=== PATIENT | male | born 1975 | race Caucasian/White ===

== ENCOUNTER 2023-12-06 14:58 | Outpatient (OUT) | payer BC, SELFPAY | END 2023-12-06 14:59 | disposition home or self-care (01) | LOC: SLEEP 14:58 | PROVIDERS: PCP Family Medicine; Visit Provider Family Medicine | DX: G47.33 Obstructive sleep apnea (adult) (pediatric) (principal) | CPT/HCPCS: 95806 ==

== ENCOUNTER 2025-07-02 14:52 | Outpatient (OUT) | payer BC, SELFPAY ==
--- OUTSIDE RECORDS SUMMARY | 2025-06-26 15:40 | XMS_ITS | Encounter Summary ---
Author Organization [facility] Address [address] [place] [address] Care Team Providers Care Densitometer Reader Name Role Phone Jae Faulkner MD Primary Care Provider Micaela Merino ENVIRONMENTAL SYSTEMS COORDINATOR Unavailable [phone] Encounter Details DateTypeDepartmentCare Team (Latest Contact Info)Wqvtxxjqlhf55/23/2025 3:40 PM EDTOffice Visit [facility] [address] [place] [address] Micaela Merino, ENVIRONMENTAL SYSTEMS COORDINATOR [address] [place] [address] Contusion of left foot, initial encounter (Primary Dx); Pain in toe of left foot Social History Tobacco UseTypesPacks/DayYears UsedDateSmoking Tobacco: Never AssessedSex and Gender InformationValueDate RecordedSex Assigned at BirthNot on fileLegal Sex Male11/16/2022 6:52 PM EDTGender IdentityNot on fileSexual OrientationNot on filedocumented as of this encounter Last Filed Vital Signs Vital SignReadingTime TakenCommentsBlood Yvurhhuh212/7006/26/2025 3:44 PM EDT Mbgai277006/26/2025 3:44 PM FOXYbutmhomkaq93.6 ??C (97.8 ??F)06/26/2025 3:44 PM EDTRespiratory Rate--Oxygen Fkhcczwjjf34%06/26/2025 3:44 PM EDTInhaled Oxygen Concentration--Feygzq42 kg (205 lb)06/26/2025 3:44 PM EDTHeight--Body Mass Index 23.6902/06/2021 12:00 PM ESTdocumented in this encounter Progress Notes * Micaela Merino, ENVIRONMENTAL SYSTEMS COORDINATOR - 06/26/2025 3:40 PM EDT Images from the original note were not included. [address], [address] [facility], [address] P: [phone] F: [phone] HPI Historian of HPI: patient Josiah Tang is a 50 y.o. male who presents today to the Urgent Care with the following complaints and denials due left second toe pain which has been present since last night. Pt states he did kick a bed post last night. C/O Denies Symptom Comments [x] [] swelling [x] [] ecchymosis [x] [] erythema [x] [] tingling [x] [] numbness [x] [] Pain radiation [x] [] Weakness [x] [] Decreased ROM [x] [] Trauma Additional Comments: pt has not taken any OTC medications Pt denies heat application to the affected area Pt denies cold application to the affected area Pt states he does have a hx of gout. Denies fever or chills. ROS A complete system ROS was performed and negative aside from the pertinent positives noted in the HPI and PE. PHYSICAL EXAM Examination: General Examination: General Examination: Alert, oriented, normal affect, well-appearing, in no acute distress, well developed, well nourished. Head: Normocephalic, atraumatic Eyes: Sclera anicteric. Neck/Thyroid: Neck supple, full range of motion Skin: mild erythema left dorsal foot, MTP joint of toes 2-4. Musculoskeletal: Foot left: painful ROM Toes. FROM Ankle w/o tenderness. Swelling and tenderness localized to MTP joint of toes 2-3. Extremities: no clubbing, cyanosis Peripheral Pulses: 2+ posterior tibial, 2+ dorsalis pedis, nail laura intact left Neurologic: Sensory exam intact to left foot. Psych: alert, oriented, cognitive function intact, cooperative with exam TREATMENT PLAN 1. Contusion of left foot, initial encounter (Primary) Xray left foot obtained; prelim interp neg for acute findings. Will contact pt if any change with final report. Start prednisone-see rx, discussed Se, no NSAIDS with use. Pt requests rx for motrin. Discussed will rx motrin, however, pt to not start until after finishing prednisone. Discussed not taking motrin and prednisone together. Immediate eval if new, worsening, or warning s/s otherwise follow up with PCP over next 5-7 days for recheck. - predniSONE (Deltasone) 20 MG tablet; Take 1 tablet (20 mg) by mouth in the morning and 1 tablet (20 mg) before bedtime. Do all this for 5 days. Dispense: 10 tablet; Refill: 0 - ibuprofen 800 MG tablet; Take 1 tablet (800 mg) by mouth every 8 (eight) hours if needed for mildpain for up to 7 days Do not take with prednisone. Start as needed after prednisone use. Dispense: 21 tablet; Refill: 0 2. Pain in toe of left foot See 1. - XR foot 3+ views left - predniSONE (Deltasone) 20 MG tablet; Take 1 tablet (20 mg) by mouth in the morning and 1 tablet (20 mg) before bedtime. Do all this for 5 days. Dispense: 10 tablet; Refill: 0 - ibuprofen 800 MG tablet; Take 1 tablet (800 mg) by mouth every 8 (eight) hours if needed for mildpain for up to 7 days Do not take with prednisone. Start as needed after prednisone use. Dispense: 21 tablet; Refill: 0 documented in this encounter Plan of Treatment Not on file documented as of this encounter Procedures Procedure NamePriorityDate/TimeAssociated DiagnosisCommentsXR FOOT 3+ VIEWS LEFT STAT1 4:40 PM EDT Pain in toe of left foot documented in this encounter Results * XR foot 3+ views left (06/26/2025 4:40 PM EDT)Anatomical RegionLaterality ModalityLower Extremities, FootLeftRadiographic ImagingSpecimen (Source) Anatomical Location / LateralityCollection Method / VolumeCollection Time Received Time06/26/2025 4:55 PM EDT Impressions 06/26/2025 5:03 PM EDT FINDINGS FAVOR GOUT. ELECTRONICALLY SIGNED BY: Zenobia Trent DO Narrative 06/26/2025 5:03 PM EDT XR FOOT 3+ VIEWS LEFT : 06/26/2025 4:34 PM CLINICAL HISTORY: pain injury swelling. hx gout. COMPARISON: October 14, 2020 TECHNIQUE: ROUTINE FINDINGS: There is soft tissue prominence over the first digit in the region of the MTP joint. There is ??erosion seen in the head of the first metatarsal with overhanging edges. Small erosion is also seen in the head of the proximal phalanx and the base of the distal phalanx. The joint spaces are relatively preserved. Procedure Note Zenobia Trent DO - 06/26/2025 XR FOOT 3+ VIEWS LEFT : 06/26/2025 4:34 PM CLINICAL HISTORY: pain injury swelling. hx gout. COMPARISON: October 14, 2020 TECHNIQUE: ROUTINE FINDINGS: There is soft tissue prominence over the first digit in the region of theMTP joint. There is erosion seen in the head of the first metatarsal withoverhanging edges. Small erosion is also seen in the head of the proximalphalanx and the base of the distal phalanx. The joint spaces arerelatively preserved. IMPRESSION: FINDINGS FAVOR GOUT. ELECTRONICALLY SIGNED BY: Zenobia Trent DO Authorizing ProviderResult TypeResult StatusLindschito Merion NPIMG XR PROCEDURESFinal Result documented in this encounter Visit Diagnoses Diagnosis Contusion of left foot, initial encounter- Primary Pain in toe of left foot Pain in soft tissues of limb documented in this encounter Care Teams Team MemberRelationshipSpecialtyStart DateEnd Date Jae Faulkner MD [address] [place] [address] PCP - GeneralFamily Medicine12/27/23 Micaela Merino NP [address] [place] [address] GLENNA - Leslie Commercial02/02/25documented as of this encounter
--- OUTSIDE RECORDS SUMMARY | 2025-06-26 17:00 | XMS_ITS | Encounter Summary ---
Author Organization [facility] Address [facility] [place] [address] Care Team Providers Care Horticultural Specialty Grower Field Name Role Phone Jae Faulkner MD Primary Care Provider Micaela Merino STAR ROUTE MAIL DRIVER Unavailable [phone] Encounter Details DateTypeDepartmentCare Team (Latest Contact Info)Ihlillzqnxw98/23/2025 5:00 PM EDTAncillary Procedure [facility] [address] [facility] [address] [place] [phone] Social History Tobacco UseTypesPacks/DayYears UsedDateSmoking Tobacco: Never AssessedSex and Gender InformationValueDate RecordedSex Assigned at BirthNot on fileLegal Sex Male11/16/2022 6:52 PM EDTGender IdentityNot on fileSexual OrientationNot on filedocumented as of this encounter Plan of Treatment Not on [...] Zenobia Trent DO Authorizing ProviderResult TypeResult StatusLindschito Merino NPIMG XR PROCEDURESFinal Result documented in this encounter Visit Diagnoses Not on filedocumented in this encounter Care Teams Team MemberRelationshipSpecialtyStart DateEnd Date Jae Faulkner MD [address] [place] [address] PCP - GeneralFamily Medicine12/27/23 Micaela Merino NP [address] [place] [address] PCP - Lyle Commercial02/02/25documented as of this encounter
--- OUTSIDE RECORDS SUMMARY | 2025-07-02 14:56 | XMS_ITS | Encounter Summary ---
Author Organization [facility] Address [address] [facility] [place] [address] Care Team Providers Care Systems Testing Laboratory Technician Name Role Phone Jae Faulkner MD Primary Care Provider [phone] Micaela Merino NIPPING MACHINE OPERATOR Unavailable [phone] Encounter Details DateTypeDepartmentCare Team (Latest Contact Info)Qhtanlsljec75/23/2025Travel Social History Tobacco UseTypesPacks/DayYears UsedDateSmoking Tobacco: Never AssessedSex and Gender InformationValueDate RecordedSex Assigned at BirthNot on fileLegal Sex Male11/16/2022 6:52 PM EDTGender IdentityNot on fileSexual OrientationNot on filedocumented as of this encounter Plan of Treatment Not on file documented as of this encounter Visit Diagnoses Not on filedocumented in this encounter Care Teams Team MemberRelationshipSpecialtyStart DateEnd Date Jae Faulkner MD [address] [place] [address] PCP - GeneralFamily Medicine12/27/23 Micaela Merino, DAVID [address] [facility] [address] [place] [address] PCP - [place] Commercial02/02/25documented as of this encounter
--- OUTSIDE RECORDS SUMMARY | 2025-07-02 14:56 | XMS_ITS | Encounter Summary ---
Author Organization [facility] Address [address] [facility] [place] [address] Care Team Providers Care Castables Worker Name Role Phone Jae Faulkner MD Primary Care Provider Micaela Merino NP Unavailable Encounter Details DateTypeDepartmentCare Team (Latest Contact Info)Lalvgisstbd05/23/2025Telephone [facility] [place] [facility] [address] [facility] [address] [place] [address] Micaela Merino NP [address] [facility] [address] [place] [address] Social History Tobacco UseTypesPacks/DayYears UsedDateSmoking Tobacco: Never AssessedSex and Gender InformationValueDate RecordedSex Assigned at BirthNot on fileLegal Sex Male11/16/2022 6:52 PM EDTGender IdentityNot on fileSexual OrientationNot on filedocumented as of this encounter Miscellaneous Notes * Telephone Encounter - Micaela Merino NP - 06/26/2025 5:22 PM EDT Please let pt know final foot xray remains neg for fracture. Does mention great toe having changes that favor gout. Nothing mentioned about 2nd and 3rd toes having gout noted on xray. Start steroid as directed and follow up as directed at time of office visit. documented in this encounter Plan of Treatment Not on file documented as of this encounter Visit Diagnoses Not on filedocumented in this encounter Care Teams Team MemberRelationshipSpecialtyStart DateEnd Date Jae Faulkner MD [address] [place] [address] PCP - GeneralFamily Medicine12/27/23 Micaela Merino NP [address] [place] [address] PCP - Leslie Carroll02/02/25documented as of this encounter
--- OUTSIDE RECORDS SUMMARY | 2025-07-02 14:56 | XMS_ITS | Clinical Summary ---
Author Organization [facility] Address [facility] [place] [address] Care Team Providers Care Doctor Of Radiology Name Role Phone Jae Faulkner MD Primary Care Provider [phone] Micaela Merino PERSONAL INJURY ATTORNEY Unavailable Allergies No known active allergies Medications MedicationSigDispense QuantityRefillsLast FilledStart DateEnd DateStatus ibuprofen 800 MG tablet Indications:Contusion of left foot, initial encounter,Pain in toe of left foot Take 1 tablet (800 mg) by mouth every 8 (eight) hours if needed for mild pain for up to 7 days Do not take with prednisone. Start as needed after prednisone use. 21 tablet /tive methylPREDNISolone (Medrol Dospak) 4 MG tablets Indications:Pain and swelling of toe of left foot,Pain and swelling of toe of right footFollow schedule on package instructions 21 tablet Discontinued(Therapy completed) predniSONE (Deltasone) 20 MG tablet Indications:Contusion of left foot, initial encounter,Pain in toe of left foot Take 1 tablet (20 mg) by mouth in the morning and 1 tablet (20 mg) before bedtime. Do all this for 5 days. 10 tablet /Expired Encounters DateTypeDepartmentCare WxldEenpiadvmbu23/23/2025 5:00 PM EDTAncillary Procedure [facility] [place] [facility] [address] [place] [address] 06/26/2025 3:40 PM EDTOffice Visit [facility] [address] [facility] [address] [place] [address] Micaela Merino, DAVID Contusion of left foot, initial encounter (Primary Dx); Pain in toe of left foot06/26/2025Telephone [facility] [address] [facility] [address] [place] [address] Micaela Merino NP 06/26/2025Travelfrom Last 3 Months Social History Tobacco UseTypesPacks/DayYears UsedDateSmoking Tobacco: Never AssessedSex and Gender InformationValueDate RecordedSex Assigned at BirthNot on fileLegal Sex Male11/16/2022 6:52 PM EDTGender IdentityNot on fileSexual OrientationNot on file Last Filed Vital Signs Vital SignReadingTime TakenCommentsBlood Ynzuaduj661/7006/26/2025 3:44 PM EDT Ddyzj722206/26/2025 3:44 PM TFCXsrnerhahri87.6 ??C (97.8 ??F)06/26/2025 3:44 PM EDTRespiratory Rate--Oxygen Sonyysdhsu12%06/26/2025 3:44 PM EDTInhaled Oxygen Concentration--Cgkkru10 kg (205 lb)06/26/2025 3:44 PM MDGEdzijr853.1 cm (6' 6 ) 10/14/2020 12:00 PM ESTBody Mass Index23.69010/14/2020 12:00 PM EST Plan of Treatment Health MaintenanceDue DateLast DoneCommentsCT Pdwcvgukdlaa1975Colonoscopy 1975Colorectal Cancer Qnpxscmxh1975FIT-DNA1975FIT1975 FOBT1975 8562Gafgecppurgsc1975MMR Vaccines (1 of 1 - Standard series) 01/07/1976DTaP/Tdap/Td Vaccines (1 - Tdap)1982Hepatitis B Vaccines (1 of 3 - 19+ 3-dose series)1994COVID-19 Vaccine ( season)2025 07/07/2021, 12/15/2020, 11/23/2020Influenza Vaccine (#1)5109/09/2013HIB VaccinesAged OutNo longer eligible based on patient's age to complete this topic HPV VaccinesAged OutNo longer eligible based on patient's age to complete this topicHepatitis A VaccinesAged OutNo longer eligible based on patient's age to complete this topicIPV VaccinesAged OutNo longer eligible based on patient's age to complete this topicMeningococcal B VaccineAged OutNo longer eligible based on patient's age to complete this topicMeningococcal VaccineAged OutNo longer eligible based on patient's age to complete this topicPneumococcal Vaccine: Pediatrics (0 to 5 Years) and At-Risk Patients (6 to 64 Years)Aged OutNo longer eligible based on patient's age to complete this topicRotavirus VaccinesAged Out No longer eligible based on patient's age to complete this topic Procedures Procedure NamePriorityDate/TimeAssociated DiagnosisCommentsXR FOOT 3+ VIEWS LEFT STAT1 4:40 PM EDT Pain in toe of left foot from Last 3 Months Results * XR foot 3+ views left [...] TypeResult StatusLindschito Merino NPIMG XR PROCEDURESFinal Result from Last 3 Months Insurance Care Teams Team MemberRelationshipSpecialtyStart DateEnd Jae Faulkner MD [address] [place] [address] PCP - GeneralFamily Medicine12/27/23 Micaela Merino NP [address] [place] [address] [facility]
--- OUTSIDE RECORDS SUMMARY | 2025-07-02 14:56 | XMS_ITS | Clinical Summary ---
Author Organization [employer] [facility] tem Address [id number] [place] [address] Care Team Providers Care Processing Tech Name Role Phone Dacia Mckeon MD Primary Care Provider [phone] Allergies No known active allergies Medications MedicationSigDispense QuantityRefillsLast FilledStart DateEnd DateStatus hyoscyamine (ANASPAZ,LEVSIN) 0.125 mg tablet 0.125 mg as needed.Active raNITIdine (ZANTAC) 150 mg tablet Take 150 mg by mouth 2 (two) times a day.Active Family History Medical HistoryRelationNameCommentsParkinsonismFatherRelationNameStatusComments FatherAliveMotherAlive Social History Tobacco UseTypesPacks/DayYears UsedDateSmoking Tobacco: Some DaysCigarettes0.531 Smokeless Tobacco: Never Tobacco Cessation:Ready to Q uit: Yes; Counseling Given: Yes Alcohol UseStandard Drinks/WeekCommentsYes0 (1 standard drink = 0.6 oz pure alcohol)ChildcareAnswerDate EcsrwepzGykqqvknlWacxfty51/13/2019EmploymentAnswer Date GewyazusAtxusbdmrmEbamzrl73/13/2019Purpose - LifeAnswerDate RecordedPurpose and direction in obfiUrvjmub34/11/2021ex and Gender InformationValueDate RecordedSex Assigned at BirthNot on fileLegal WvxKtvz13/16/2018 11:44 AM EDT Gender IdentityNot on fileSexual OrientationNot on file Last Filed Vital Signs Vital SignReadingTime TakenCommentsBlood Glqkfpgp168/8211 10:45 AM EDT Pulse--Temperature--Respiratory Rate--Oxygen Saturation--Inhaled Oxygen Concentration--Bufdet36.7 kg (200 lb)07/06/2018 10:45 AM XYURijniy736.8 cm (5' 10 )07/06/2018 10:45 AM EDTBody Mass Index28.7109/05/2017 10:45 AM EDT Plan of Treatment Health MaintenanceDue DateLast DoneCommentsDepression Klxtqwpzn76/05/1987Tobacco Ypeqdxejx49/05/1987Adult BMI Idxkhfqjx97/05/1993DTaP,Tdap and Td Vaccines (1 - Tdap)1994Zoster (Shingles) Vaccine (1 of 2)2025Influenza Vaccine 05/05/2025 Medical Devices Not on file Insurance Care Teams Team MemberRelationshipSpecialtyStart DateEnd Date Dacia Mckeon MD PCP - GeneralFamily Mrtgywuh53/16/18
== END 2025-07-02 14:53 | disposition home or self-care (01) ==
LOC: FHNEUROLOG 14:53
PROVIDERS: PCP Family Medicine; Visit Provider Psychiatry & Neurology Neurology
DX: G47.33 Obstructive sleep apnea (adult) (pediatric) (principal); G47.10 Hypersomnia, unspecified; R06.83 Snoring
CPT/HCPCS: G0463